=== PATIENT | male | born 1955 | race Caucasian/White ===

== ENCOUNTER 2019-07-19 06:32 | Day surgery (SDC) | payer MEDICARE, OTHER ==
[2019-07-19] MEDS ORDERED: Lactated Ringers 1,000 ML IV SCH (07:00)
[2019-07-19] MEDS ORDERED: Midazolam 1 MG/ML 2 ML SDV ONE (07:24)
[2019-07-19] MEDS ORDERED: fentaNYL 100 MCG/2 ML SDV ONE (07:24)
[2019-07-19] MEDS ORDERED: Propofol 200 MG/20 ML SDV ONE (07:24)
[2019-07-19 09:11] VITALS: BP 113/62; PULSE 58
--- NOTE | 2019-07-19 15:27 | OR ---
DATE OF PROCEDURE: 07/19/2019 SURGEON: Anand Lord MD PREOPERATIVE DIAGNOSIS: History of precancerous polyps. POSTOPERATIVE DIAGNOSES: 1. Diverticulosis. 2. History of precancerous polyps. PROCEDURE: Colonoscopy to the cecum. ANESTHESIA: IV anesthesia with monitored anesthesia care. INDICATION: This 64-year-old white male is referred for a colonoscopy because of a history of colon polyps. His last colonoscopic exam, he says, was done 5 years ago. I counseled him for the procedure, including risks and alternatives. He gave his informed consent to proceed. DESCRIPTION OF PROCEDURE: The patient was placed in the left lateral decubitus position. IV anesthesia was administered by the Anesthesia Service. Time-out was held. A rectal exam was performed, which was unremarkable. The flexible video Olympus colonoscope was introduced through his anus, up his rectum, out his colon, all the way to the cecum. En route, we saw multiple left-sided diverticula. There was no bleeding or inflammation associated with any of them. Once the cecum was reached, the scope was slowly withdrawn, examining the mucosa throughout. No additional mucosal abnormalities were noted. The scope was retroflexed in the rectum with the distal rectum appearing unremarkable. The scope was straightened and removed. He tolerated the procedure well. Anand Lord MD /[id number]
== END 2019-07-19 09:25 | disposition home or self-care (01) ==
LOC: JP.SDS 06:32
PROVIDERS: ATTEND Surgery
DX: Z12.11 Encounter for screening for malignant neoplasm of colon (principal); K57.30 Diverticulosis of large intestine without perforation or abscess without bleeding; I10 Essential (primary) hypertension; I25.10 Atherosclerotic heart disease of native coronary artery without angina pectoris; K21.9 Gastro-esophageal reflux disease without esophagitis; G47.33 Obstructive sleep apnea (adult) (pediatric); E66.9 Obesity, unspecified; Z68.36 Body mass index [BMI] 36.0-36.9, adult; Z86.010 Personal history of colon polyps; Z88.8 Allergy status to other drugs, medicaments and biological substances
CPT/HCPCS: J2250; J2704; J3010; J7120

== ENCOUNTER 2019-09-18 11:01 | Emergency (ER) | payer MEDICARE ==
--- NOTE | 2019-09-18 11:36 | EDM.PDOC ---
ED HPI GENERAL MEDICAL PROBLEM - General Chief Complaint: Laceration Stated Complaint: CUT ON LEFT THUMB Time Seen by Provider: 09/18/19 11:23 Source of Information: Reports: Patient History Limitations: Reports: No Limitations - History of Present Illness INITIAL COMMENTS - FREE TEXT/NARRATIVE: Patient presents for evaluation of an injury to the left thumb occurring today. He was using a knife to cut some food and sliced into the dorsal surface of the proximal segment of the left thumb. There was heavy bleeding at the time of injury. He takes aspirin 325 mg daily. He applied some type of bandage and what he calls a tourniquet but was unable to stem the bleeding. He use some gorilla glue which he had at home and pushed it into the wound area which then stopped the bleeding. He is unable to extend the distal segment of the left thumb but all other motion of the thumb is intact. His last tetanus update was 2 years ago. Onset: Today Quality: Reports: Throbbing Severity: Mild Improves with: Reports: None Worsens with: Reports: Movement Context: Reports: Trauma - Related Data Allergies Allergy/AdvReac Type Severity Reaction Status Date / Time atorvastatin [From Lipitor] Allergy Other Verified 09/18/19 11:23 Home Meds: Home Meds Aspirin [Ecotrin EC] 325 mg PO DAILY 10/21/13 [History] Lisinopril [Zestril] 10 mg PO DAILY 10/21/13 [History] Metoprolol Tartrate [Lopressor] 50 mg PO BID 10/21/13 [History] [place]-3 Fatty Acids/Fish Oil [Fish Oil 1,200 mg Softgel] 1 each PO DAILY [History] Omeprazole 20 mg PO DAILY 10/21/13 [History] PARoxetine [Paxil] 20 mg PO DAILY 10/21/13 [History] Simvastatin [Zocor] 80 mg PO BEDTIME 10/21/13 [History] Rosuvastatin [Crestor] 20 mg PO DAILY 07/15/19 [History] Past Medical History HEENT History: Reports: Cataract, Hard of Hearing Cardiovascular History: Reports: CAD, High Cholesterol, Hypertension, [place] Gastrointestinal History: Reports: Colon Polyp, GERD Musculoskeletal History: Reports: Fracture Other Musculoskeletal History: rt ankle Psychiatric History: Reports: Anxiety, Mood Swings Endocrine/Metabolic History: Reports: Obesity/BMI 30+ - Infectious Disease History Infectious Disease History: Reports: Chicken Pox, Measles, Mumps - Past Surgical History HEENT Surgical History: Reports: Cataract Surgery GI Surgical History: Reports: Colonoscopy, Hernia Repair/Other Other GI Surgeries/Procedures: mesh Musculoskeletal Surgical History: Reports: Shoulder Surgery Social & Family History - Family History Family Medical History: Noncontributory - Caffeine Use Caffeine Use: Reports: Coffee, Soda ED ROS GENERAL - Review of Systems Review Of Systems: Comprehensive ROS is negative, except as noted in HPI. ED EXAM, SKIN/RASH Exam: See Below Text/Narrative:: He is seated in the chair of room 11 in no distress. Exam Limited By: No Limitations Extremities: Other (The dorsal surface of the proximal segment of the left thumb shows an approximately 2 cm area of injury although it is covered with dried gorilla glue. With pressure over the glue, losing occurs from the lateral aspect of the glue mound. He is unable to extend the distal segment of the thumb at all. Lateral bending against resistance and flexion of the thumb is intact.). No: Normal Range of Motion ED SKIN PROCEDURES - Laceration/Wound Repair Left Proximal Dorsal Digit - 1st (Thumb) Appearance: Subcutaneous, Clean Distal NVT: Other (Patient does not have the ability to extend the terminal segment of the thumb.) Anesthetic Type: Local Local Anesthesia - Lidocaine (Xylocaine): 1% with EPI Local Anesthetic Volume: 2cc Skin Prep: Chlorhexidine (Hibiciens) Exploration/Debridement/Repair: Wound Explored, No Foreign Material Found Closed with: Sutures Lac/Wound length In cm: 3 Suture Size: 4-0 # of Sutures: 6 Suture Type: Nylon, Interrupted Sterile Dressing Applied: Provider Tetanus Status Addressed: Yes Complications: No Complication Description: None. Course - Vital Signs Last Recorded V/S: Last Vital Signs Temp 36.4 C 09/18/19 13:28 Pulse 57 L 09/18/19 13:28 Resp 17 09/18/19 13:28 BP 151/67 H 09/18/19 13:28 Pulse Ox 97 09/18/19 13:28 - Orders/Labs/Meds Orders: Active Orders 24 hr Category Date Time Status Fingers Thumb Lt FA [CR] Stat Exams 09/18/19 11:46 Taken Meds: Medications Discontinued Medications Generic Name Dose Route Start Last Admin Trade Name Freq PRN Reason Stop Dose Admin Bacitracin 1 dose 09/18/19 13:13 09/18/19 13:30 Bacitracin Oint 1 Gm TOP 09/18/19 13:14 1 dose ONETIME ONE Administration Lidocaine/Epinephrine 2 ml 09/18/19 12:15 09/18/19 12:31 Xylocaine 1% With Epinephrine 1:100,000 INFILT 2 ml ASDIRECTED [facility] Administration - Re-Assessments/Exams Free Text/Narrative Re-Assessment/Exam: 09/18/19 11:51 I discussed options for care at this point. We need to remove the glue and irrigate and approximate the wound with sutures to reduce future bleeding. He feels that is the best plan as well. We'll obtain x-ray of the thumb first and then look at wound repair. 09/18/19 12:08 X-ray of thumb shows no obvious bony injury. 09/18/19 19:36 The laceration was approximated with 6 interrupted sutures. See procedure note. He will need referral to orthopedics for evaluation of tendon repair. Departure - Departure Time of Disposition: 13:08 Disposition: Home, Self-Care 01 Condition: Good Clinical Impression: Laceration of thumb with tendon involvement Qualifiers: Encounter type: initial encounter Laterality: left Qualified Code(s): S61.012A - Laceration without foreign body of left thumb without damage to nail, initial encounter - Discharge Information *PRESCRIPTION DRUG MONITORING PROGRAM REVIEWED*: Not Applicable *COPY OF PRESCRIPTION DRUG MONITORING REPORT IN PATIENT NEHEMIAH: Not Applicable Instructions: Laceration Care, Adult Referrals: Gabe Diaz MD [Primary Care Provider] - Forms: ED Department Discharge Additional Instructions: Keep first bandage on and dry until recheck with hand surgeon. Start antibiotic today. If bleeding soaks completely through the bandage or you feel worse in anyway, return to emergency department. Elevate the hand as much as possible. Sepsis Event Note - Focused Exam Vital Signs: Vital Signs Temp Pulse Resp BP Pulse Ox 09/18/19 13:28 36.4 C 57 L 17 151/67 H 97 09/18/19 12:26 36.4 C 57 L 17 151/67 H 97 Date Exam was Performed: 09/18/19 Time Exam was Performed: 19:34 - My Orders Last 24 Hours: My Active Orders 09/18/19 11:46 Fingers Thumb Lt FA [CR] Stat - Assessment/Plan Last 24 Hours: My Active Orders 09/18/19 11:46 Fingers Thumb Lt FA [CR] Stat
[2019-09-18] MEDS ORDERED: Lidocaine 1% with EPINEPHrine 1:100,000 50 ML MDV INFILT SCH (12:15)
[2019-09-18 12:27] VITALS: BP 151/67; PULSE 57
[2019-09-18] MEDS ORDERED: Bacitracin Oint 1 GM U/D Packet TOP ONE (13:13)
--- NOTE | 2019-09-20 09:27 | CR ---
Fingers Thumb Lt FA CLINICAL HISTORY: Aspiration FINDINGS: There is soft tissue irregularity over the dorsal mid thumb. No underlying fracture or osseous lesion is identified. There is no radiopaque foreign body IMPRESSION: Laceration No osseous abnormality
== END 2019-09-18 13:32 | disposition home or self-care (01) ==
LOC: JP.ED 11:01
DX: S61.012A Laceration without foreign body of left thumb without damage to nail, initial encounter (principal); I25.10 Atherosclerotic heart disease of native coronary artery without angina pectoris; E78.00 Pure hypercholesterolemia, unspecified; I10 Essential (primary) hypertension; I25.2 Old myocardial infarction; K21.9 Gastro-esophageal reflux disease without esophagitis; F41.9 Anxiety disorder, unspecified; E66.9 Obesity, unspecified; Z68.37 Body mass index [BMI] 37.0-37.9, adult; Z79.82 Long term (current) use of aspirin; Z88.8 Allergy status to other drugs, medicaments and biological substances; Z79.899 Other long term (current) drug therapy; W26.0XXA Contact with knife, initial encounter; Y93.G1 Activity, food preparation and clean up; Y92.009 Unspecified place in unspecified non-institutional (private) residence as the place of occurrence of the external cause
CPT/HCPCS: 12002; 73140-26-FA; 73140-FA; 99283; 99283-25

== ENCOUNTER 2019-09-22 09:33 | Day surgery (SDC) | payer MEDICARE ==
[~2019-09-22 09:33] MED LIST: Bupivacaine 0.5% 30 ML SDV ONE
[2019-09-22] MEDS ORDERED: Lactated Ringers 1,000 ML IV SCH (10:00)
[2019-09-22] MEDS ORDERED: ceFAZolin 2 GM in Premix Bag 1 BAG IV ONE (10:15)
[2019-09-22] MEDS ORDERED: Nozin Nasal Sanitizer NASBOTH ONE (10:15)
[2019-09-22] MEDS ORDERED: Propofol 200 MG/20 ML SDV ONE (10:33)
[2019-09-22] MEDS ORDERED: fentaNYL 100 MCG/2 ML SDV ONE (10:34)
[2019-09-22] MEDS ORDERED: Midazolam 1 MG/ML 2 ML SDV ONE (10:34)
[2019-09-22] MEDS ORDERED: Lidocaine 0.5% 50 ML SDV ONE (10:41)
[2019-09-22 14:58] VITALS: BP 147/85; PULSE 71
--- NOTE | 2019-09-27 22:49 | OR ---
DATE OF PROCEDURE: 09/22/2019 SURGEON: Jefferson Rosado MD PREOPERATIVE DIAGNOSIS: Laceration, extensor tendon, left thumb over proximal phalanx. POSTOPERATIVE DIAGNOSIS: Laceration, extensor tendon, left thumb over proximal phalanx. PROCEDURE: Repair of the extensor tendon, left thumb. ANESTHESIA: Kaley block. INDICATIONS: Mr. Avalos is a 64-year-old gentleman who sustained a laceration over the dorsum of his left thumb proximal phalanx while sharpening a knife. Examination was consistent with a laceration of the extensor tendon. Adductor tendon is intact. He now presents for repair. Risks, benefits, and potential complications were discussed. DESCRIPTION OF PROCEDURE: After adequate regional anesthesia was obtained, the patient was placed supine and the left hand and arm were prepped and draped in a sterile fashion. Previously placed sutures were removed. The incision was extended slightly on each edge proximally and distally allowing evaluation of the extensor tendon. Complete laceration of the tendon was noted. Ends were identified. Edges of the laceration were freshened and the tendon was then repaired directly using a 4-0 nylon using locking stitches. Excellent approximation of the tendon was noted. This was irrigated and the skin was then closed with 4-0 nylon in interrupted fashion. Edges of the incision were further injected with Marcaine. Sterile dressing was applied with a plaster splint with the thumb in extension. The patient tolerated the procedure very well. There were no complications. Taken from the operating room in stable condition. Jefferson Rosado MD /[id number] [facility]
== END 2019-09-22 15:10 | disposition home or self-care (01) ==
LOC: JP.SDS 09:33
PROVIDERS: ATTEND Specialist
DX: S66.222A Laceration of extensor muscle, fascia and tendon of left thumb at wrist and hand level, initial encounter (principal); I25.10 Atherosclerotic heart disease of native coronary artery without angina pectoris; I25.2 Old myocardial infarction; I10 Essential (primary) hypertension; F41.9 Anxiety disorder, unspecified; F32.9 Major depressive disorder, single episode, unspecified; F17.210 Nicotine dependence, cigarettes, uncomplicated; E66.01 Morbid (severe) obesity due to excess calories; X58.XXXA Exposure to other specified factors, initial encounter; Z68.37 Body mass index [BMI] 37.0-37.9, adult; Z86.718 Personal history of other venous thrombosis and embolism
CPT/HCPCS: J2001; J2250; J2704; J3010; J3490; J7120

== ENCOUNTER 2021-08-25 08:16 | Emergency (ER) | payer MEDICARE ==
[2021-08-25 08:35] VITALS: BP 148/72; PULSE 61
[2021-08-25] MEDS ORDERED: HYDROmorphone 1 MG/ML Syringe IM ONE (08:48)
== END 2021-08-25 09:58 | disposition home or self-care (01) ==
LOC: JP.ED 08:16
DX: S43.101A Unspecified dislocation of right acromioclavicular joint, initial encounter (principal); I25.10 Atherosclerotic heart disease of native coronary artery without angina pectoris; E78.00 Pure hypercholesterolemia, unspecified; I10 Essential (primary) hypertension; I25.2 Old myocardial infarction; E66.9 Obesity, unspecified; Z68.35 Body mass index [BMI] 35.0-35.9, adult; Z88.8 Allergy status to other drugs, medicaments and biological substances; Z79.82 Long term (current) use of aspirin; Z72.0 Tobacco use; Z79.899 Other long term (current) drug therapy; W18.09XA Striking against other object with subsequent fall, initial encounter
CPT/HCPCS: 73030; 96372; 99283; 99285; J1170

== ENCOUNTER 2022-05-21 12:00 | Observation (INO) | payer MEDICARE | END 2022-05-22 11:00 | disposition home or self-care (01) | LOC: JP.ZCENSUS 12:00 | PROVIDERS: ADMIT Student in an Organized Health Care Education/Training Program; ATTEND Student in an Organized Health Care Education/Training Program | DX: L02.415 Cutaneous abscess of right lower limb (principal); F41.9 Anxiety disorder, unspecified; F32.A Depression, unspecified; I10 Essential (primary) hypertension; E78.5 Hyperlipidemia, unspecified; F17.210 Nicotine dependence, cigarettes, uncomplicated; L03.315 Cellulitis of perineum; I25.10 Atherosclerotic heart disease of native coronary artery without angina pectoris; E11.65 Type 2 diabetes mellitus with hyperglycemia; Z79.899 Other long term (current) drug therapy; Z88.8 Allergy status to other drugs, medicaments and biological substances; Z20.822 Contact with and (suspected) exposure to COVID-19 | CPT/HCPCS: 93005 ==